=== PATIENT | female | born 1995 ===

== ENCOUNTER 2025-04-11 08:59 | Outpatient (CLI) | payer OTHER | END 2025-04-11 09:01 | disposition home or self-care (01) | LOC: PRENATAL 08:59 | PROVIDERS: ATTEND Obstetrics & Gynecology Maternal & Fetal Medicine | DX: O44.00 Complete placenta previa NOS or without hemorrhage, unspecified trimester (principal); O34.10 Maternal care for benign tumor of corpus uteri, unspecified trimester; Z3A.20 20 weeks gestation of pregnancy ==